=== PATIENT | female | born 1980 | race Caucasian/White ===

== ENCOUNTER 2017-05-02 17:51 | Emergency (ER) | payer OTHER ==
[~2017-05-02] VITALS: Ht 157.5 cm; Wt 110.4 kg
[~2017-05-02 17:51] MED LIST: AUGMENTIN875 MG PO; CLARITIN10 MG PO; PRENATAL + DHA1 EAC1 PO
[2017-05-02 18:39] LABS: HEMATOCRIT 38.2 % (36.0-46.0); MCH 32.6 PG (29.0-34.0); MCHC 34.8 G/DL (30.0-36.0); MCV 93.6 FL (83-99); MEAN PLAT.VOLUME 9.1 uM^3 (9.5-12.4); PLATELET COUNT 259 K/uL (156-360); RBC DIS.WIDTH-CV 11.9 % (11.8-14.6); RBC DIS.WIDTH-SD 41.3 % (39-53); RED BLOOD COUNT 4.08 M/uL (3.80-5.20); WHITE BLOOD COUNT 12.7 K/uL (4.1-10.2)
[2017-05-02 19:48] LABS: ADD MIUA? YES; BILIRUBIN NEGATIVE; BLOOD LARGE; GLUCOSE (STRIP) NEGATIVE; KETONES NEGATIVE; LEUKOCYTES NEGATIVE; NITRITE NEGATIVE; PROTEIN (STRIP) 100; UROBILINOGEN 0.2 MG/DL (0.2-1.0)
[2017-05-02 19:50] LABS: COLOR RED ((YELLOW))
[2017-05-02 20:06] LABS: BACTERIA NONE SEEN /HPF; CASTS NONE SEEN /LPF; CRYSTALS NONE SEEN; EPITHELIAL CELLS RARE /HPF; MUCUS NONE SEEN /LPF; RED BLOOD CELLS TNTC /HPF (0-5); UCUL ADDED? YES; WHITE BLOOD CELLS NONE SEEN /HPF (0-5)
[2017-05-02] MEDS ORDERED: NORCO 5/3251 TABLET PO (22:54)
[2017-05-02 23:17] VITALS: BP 112/85
== END 2017-05-02 23:19 | disposition home or self-care (01) ==
LOC: EME 17:51
DX: O20.0 Threatened abortion (principal); Z3A.08 8 weeks gestation of pregnancy
CPT/HCPCS: 76801; 81003; 84702; 85027; 86850; 86900; 86901; 87086; 99281; 99283; J2790

== ENCOUNTER → 2018-02-25 | Outpatient (CLI) | payer OTHER ==
[~2018-02-25] VITALS: Ht 157.5 cm; Wt 110.0 kg
[~2018-02-25] MED LIST changes: +NORCO 5/3251 TABLET PO; +ZANTAC150 MG PO
[2018-02-25 15:38] VITALS: BP 132/61
== END | disposition home or self-care (01) ==
LOC: IVINF 15:00
DX: Z34.83 Encounter for supervision of other normal pregnancy, third trimester (principal); Z31.82 Encounter for Rh incompatibility status; Z3A.28 28 weeks gestation of pregnancy; Z67.41 Type O blood, Rh negative
CPT/HCPCS: 96372; J2790